=== PATIENT | male | born 1985 | race Caucasian/White ===

== ENCOUNTER 2017-11-05 02:51 | Emergency (ER) | payer OTHER ==
[~2017-11-05] VITALS: Ht 170.2 cm; Wt 63.5 kg
[2017-11-05] MEDS ORDERED: PREDNISONE50 MG PO (06:27)
[2017-11-05] MEDS ORDERED: MECLIZINE HCL25 MG PO (06:27)
== END 2017-11-05 06:53 | disposition home or self-care (01) ==
LOC: ER 02:51
DX: H81.13 Benign paroxysmal vertigo, bilateral (principal); G35 Multiple sclerosis

== ENCOUNTER 2018-10-14 17:27 | Emergency (ER) | payer OTHER ==
[~2018-10-14] VITALS: Ht 170.2 cm; Wt 57.2 kg
[~2018-10-14 17:27] MED LIST: MECLIZINE HCL25 MG PO; PREDNISONE50 MG PO
[2018-10-14] MEDS ORDERED: GILENYA0.5 MG PO (17:35)
== END 2018-10-14 22:21 | disposition home or self-care (01) ==
LOC: ER 17:27
DX: S23.3XXA Sprain of ligaments of thoracic spine, initial encounter (principal); X58.XXXA Exposure to other specified factors, initial encounter; Y93.89 Activity, other specified; Y92.89 Other specified places as the place of occurrence of the external cause; Y99.8 Other external cause status

== ENCOUNTER 2022-11-07 16:12 | Emergency (ER) | payer OTHER ==
[~2022-11-07] VITALS: Ht 170.2 cm; Wt 58.1 kg
[~2022-11-07 16:12] MED LIST changes: +GILENYA0.5 MG PO
== END 2022-11-07 20:07 | disposition home or self-care (01) ==
LOC: ER 16:12
DX: M54.2 Cervicalgia (principal); Z88.1 Allergy status to other antibiotic agents